=== PATIENT | female | born 1985 | race Caucasian/White ===

== ENCOUNTER 2023-06-13 13:15 | Outpatient (RCR) | payer BC, SELFPAY ==
--- NOTE | 2023-06-11 12:07 | ONC.NURNOTE ---
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
[2023-06-12 13:40] VITALS: BP 135/86; PULSE 100; RESP 16; TEMP 36.8; O2SAT 98
[2023-06-13 13:21] VITALS: BP 122/78; PULSE 64; RESP 16; TEMP 36.5; O2SAT 100
== END 2023-12-08 23:59 | disposition home or self-care (01) ==
LOC: CCIC 13:15
PROVIDERS: Visit Provider Clinical Nurse Specialist
DX: M32.9 Systemic lupus erythematosus, unspecified (principal)
CPT/HCPCS: 96365; J2930